=== PATIENT | male | born 1940 | race Caucasian/White ===

== ENCOUNTER 2017-08-08 09:20 | Observation (INO) | payer MEDICARE ==
[2017-08-05 11:23] LABS: EOSINOPHILS # (AUTO) 0.1 (0.0-0.4); EOSINOPHILS % 3.5 % (0.0-6.0); HEMOGLOBIN 12.6 g/dL (14.0-18.0); LYMPHOCYTES # (AUTO) 1.2 (1.0-3.2); LYMPHOCYTES % 29.8 % (18.0-39.1); MEAN CORPUSCULAR HGB CONC 32.3 g/dL (31-35); MONOCYTES # (AUTO) 0.2 (0.2-0.8); MONOCYTES % 5.7 % (4.4-11.3); NEUTROPHILS # (AUTO) 2.4 (2.1-6.9); NEUTROPHILS % 59.5 % (38.7-80.0); PLATELET COUNT 133 x10e3/uL (140-360); RED BLOOD COUNT 3.94 x10e6/uL (4.3-5.7); RED CELL DISTRIBUTION WIDTH 14.6 % (11.7-14.4)
[2017-08-05 11:46] LABS: ANION GAP 15.9 mmol/L (8-16); CREATININE, SERUM 1.35 mg/dL (0.72-1.25); POTASSIUM 3.9 mmol/L (3.5-5.1)
[2017-08-05 11:48] LABS: CALCIUM 9.9 mg/dL (8.4-10.2)
[~2017-08-08] VITALS: Ht 185.4 cm; Wt 147.9 kg
[~2017-08-08 09:20] MED LIST: ALLOPURINOL100 MG PO; ASPIR 8181 MG PO; BACITRACIN 50,000 UNIT VIAL ONE; CRESTOR10 MG; DIOVAN HCT 80-1 EACH PO; FUROSEMIDE40 MG PO; HYDROXYCHLOROQ200 MG; LIPITOR10 MG PO; MULTIVITAMIN PO; MUPIROCIN 2% OINT 22 GM TUBE ONE; PREDNISONE5 MG; PROBENECID-COL1 EACH PO; ROPIVACAINE 246.25 MG, EPINEPHRINE HCL 1:1000 0.5 MG, CLONIDINE HCL 0.08 MG, KETOROLAC ... INJ ONE; TRANEXAMIC ACID 1,000 MG/10 ML ML ONE; VITAMIN C PO; ZETIA10 MG PO
[2017-08-08] MEDS ORDERED: MUPIROCIN 2% OINT 22 GM TUBE ONE (09:35)
[2017-08-08] MEDS ORDERED: CELECOXIB 200 MG CAP ONE (09:55)
[2017-08-08] MEDS ORDERED: DEXAMETHASONE SOD PHOS 10 MG/1 ML VIAL ONE ×2 (09:55→17:56)
[2017-08-08] MEDS ORDERED: CEFAZOLIN SOD 2 GM/D5W 50ML 50 ML IV ONE (09:55)
[2017-08-08] MEDS ORDERED: GABAPENTIN 300 MG CAP ONE (09:55)
[2017-08-08] MEDS ORDERED: ACETAMINOPHEN 1000 MG/100 ML 100 ML IV ONE (11:43)
[2017-08-08] MEDS: SODIUM CHLORIDE 0.9% 1000ML 1,000 ML IV SCH ×2 (11:52→21:18)
[2017-08-08] MEDS: ACETAMINOPHEN 1000 MG/100 ML IV SCH ×3 (12:00→17:06)
[2017-08-08] MEDS ORDERED: KETOROLAC TROMETHAMINE 30 MG/ML VIAL IV PRN (12:00)
[2017-08-08] MEDS ORDERED: HYDROCODONE/APAP 5MG-325MG TAB PO PRN (12:00)
[2017-08-08] MEDS ORDERED: DOCUSATE SODIUM 100 MG CAP PO PRN (12:00)
[2017-08-08] MEDS ORDERED: HYDROCODONE/APAP 7.5MG-325MG 1 EA TAB PO PRN (12:00)
[2017-08-08] MEDS ORDERED: PROMETHAZINE HCL (IM) 25 MG/ML VIAL IM PRN (12:00)
[2017-08-08] MEDS ORDERED: ACETAMINOPHEN 650 MG SUPP PR PRN (12:00)
[2017-08-08] MEDS ORDERED: DIPHENHYDRAMINE HCL INJ 50 MG/ML VIAL IM/IV PRN (12:00)
[2017-08-08] MEDS ORDERED: ONDANSETRON HCL INJ 2 MG/ML VIAL IV PRN (12:00)
--- NOTE | 2017-08-08 13:17 | Diagnostic Imaging Report ---
PROCEDURE: X-RAY LEFT KNEE, ONE OR TWO VIEWS COMPARISON: 08/30/16 INDICATIONS:POST OPERATIVE LEFT KNEE SURGERY FINDINGS: See conclusion. CONCLUSION: Status post total left knee replacement with surrounding soft tissue swelling, air and master consistent with recent surgery. No acute fractures. Dictated by: Evaristo Corrales M.D. on 08/08/2017 at 13:20 Electronically approved by: Evaristo Corrales M.D. on 08/08/2017 at 13:20
[2017-08-08 13:35] VITALS: BP 110/54
--- NOTE | 2017-08-08 13:43 | Operative Report ---
DATE OF PROCEDURE: August 08, 2017 ELECTRIC MOTOR TESTER: Lm Swift PA-C The patient was brought to the operating room for induction of anesthesia. Throughout this case, my PA's assistance was necessary for retraction of soft tissue and positioning of the extremity. This allows for efficient and technically successful execution of the operation and is considered medically necessary. PREOPERATIVE DIAGNOSIS: 1. Osteoarthritis left knee. 2. Morbid obesity. POSTOPERATIVE DIAGNOSIS: 1. Osteoarthritis left knee. 2. Morbid obesity. PROCEDURE: Left total knee arthroplasty *added complexity secondary to BMI greater than 43. INDICATIONS: The patient is a 77-year-old gentleman who has end-stage arthritis of his left knee. He has failed conservative management and would like to proceed with a left total knee replacement. The risks and benefits have been discussed. The added challenges both for the surgery and his recovery due to his obesity have been explained. The added risk for perioperative complications has been explained. He has attempted weight loss without tremendous success. He wishes to proceed with the surgery. DESCRIPTION OF PROCEDURE: The patient was brought to the operating room and placed under general anesthetic. He received a regional block, prophylactic antibiotics and tranexamic acid in the holding area. His left lower extremity was prepped and draped in a sterile manner. Throughout the case, added time, personnel and difficulty were encountered due to the large size of his left leg. The left leg was ultimately prepped and draped in a sterile manner. A preoperative time out was performed. The extremity was carefully exsanguinated, and a proximal tourniquet was inflated to 350 mmHg. A somewhat more extensile exposure was necessary for the anterior approach of his left knee. A medial parapatellar arthrotomy was performed. Clear synovial fluid was removed from the joint. Soft-tissue releases were performed to ultimately bring the knee up into flexion with the patella everted. The cruciate ligaments were sacrificed. A Brown and Nephew posterior stabilized Tea II system was used throughout the case. Marginal osteophytes and meniscal remnants were removed from the knee. An extramedullary cutting guide was used to resect the proximal tibia. The tibial baseplate cut was referenced off of the least affected lateral compartment. The tibial baseplate was noted to be a size number 7. Some more dense sclerotic bone in the medial compartment was drilled with a small drill to add for later cement fixation. The central fin punch was impacted, and attention was directed towards the distal femur. An intramedullary cutting guide was used to resect the distal femur. The cut was made in 6 degrees of valgus and rotation referenced off of a combination of landmarks including [place]'s line, the epicondylar axis and the posterior condyles. Exposure was challenging due to the size and tightness of the knee. The femoral component was a size number 8. The anterior and posterior cuts were made. Trial reductions were then performed. A 9 mm posterior stabilized tibial insert provided optimal soft-tissue balancing in extension and 90 degrees of flexion. The patella was then resurfaced with a 35 mm x 7.5 mm patellar button. The thickness was checked before and after and was right around 26 mm. Patellar tracking was noted to be concentric. The trial implants were then all removed. The posterior compartment was inspected for any persistent osteophytes. A 100 mL premixed pericapsular OLGA injection was placed into the soft tissue. The knee was thoroughly irrigated with a Pulsavac. The components were cemented into place using a single mix of [place] cement preloaded with antibiotics. Care was taken to carefully remove all of the cement. The wound was further irrigated while the cement cured. The arthrotomy was then carefully closed with numerous interrupted number 1 Ethibond. The knee was put through flexion and extension to ensure a secure closure. The skin was closed with subcuticular Vicryl and master. A sterile bandage was applied. The patient was extubated and transported to the recovery room in stable condition. Blood loss was minimal. All needle and sponge counts were correct. Job#: [id number] EV
[2017-08-08] MEDS ORDERED: CEFAZOLIN SOD 1 GM/NS 50ML 50 ML IV SCH (14:00)
[2017-08-08] MEDS ORDERED: MIDAZOLAM HCL 2 MG/2 ML VIAL ONE (14:51)
[2017-08-08] MEDS ORDERED: FENTANYL CITRATE/PF 100MCG/2 ML INJ ONE (14:51)
[2017-08-08] MEDS ORDERED: CELECOXIB 100 MG CAP PO SCH (17:00)
[2017-08-08] MEDS: CEFAZOLIN SOD 1 GM VIAL IV SCH (17:02)
[2017-08-08] MEDS: ASPIRIN 325 MG TAB PO SCH (17:02)
[2017-08-08] MEDS ORDERED: ONDANSETRON HCL INJ 2 MG/ML VIAL ONE (17:49)
[2017-08-08] MEDS ORDERED: PROPOFOL IV EMULSION 10 MG/ML 20 ML VIAL ONE (17:49)
[2017-08-08] MEDS ORDERED: PHENYLEPHRINE HCL 1% 10 MG/ML VIAL ONE (17:49)
[2017-08-08] MEDS ORDERED: LIDOCAINE HCL 2% LOCAL INJ 5 ML SDV VIAL INJ ONE (17:49)
[2017-08-08] MEDS ORDERED: SEVOFLURANE INHAL SOLN 250 ML PEN BTL ONE (17:49)
[2017-08-08] MEDS ORDERED: DEXAMETHASONE SOD PHOS INJ 4 MG/ML VIAL ONE (17:49)
[2017-08-08] MEDS ORDERED: EPHEDRINE SULFATE INJ 50 MG/10 ML SYR ONE (17:49)
[2017-08-08] MEDS ORDERED: ROPIVACAINE 0.5% 5 MG/ML 30 ML SDV ONE (17:56)
[2017-08-08 20:00] VITALS: BP 127/63
[2017-08-08] MEDS ORDERED: ZOLPIDEM TARTRATE 5 MG TAB PO PRN (21:00)
[2017-08-08 23:22] VITALS: BP 127/63
[2017-08-09] VITALS: BP 107/56
[2017-08-09] MEDS: CEFAZOLIN SOD 1 GM VIAL IV SCH ×2 (01:14→09:52)
[2017-08-09 02:47] VITALS: BP 107/56
[2017-08-09 04:00] VITALS: BP 107/56
[2017-08-09] MEDS: ACETAMINOPHEN 1000 MG/100 ML IV SCH (05:30)
[2017-08-09 07:05] LABS: HEMATOCRIT 30.9 % (38.2-49.6); HEMOGLOBIN 10.1 g/dL (14.0-18.0)
[2017-08-09] MEDS: SODIUM CHLORIDE 0.9% 1000ML 1,000 ML IV SCH (07:52)
[2017-08-09] MEDS ORDERED: CELECOXIB 200 MG CAP PO SCH (08:00)
[2017-08-09 08:58] VITALS: BP 111/56
[2017-08-09] MEDS: ASPIRIN 325 MG TAB PO SCH (09:00)
[2017-08-09] MEDS ORDERED: ASPIRIN325 MG PO (11:11)
[2017-08-09] MEDS ORDERED: ACETAMINOPHEN 1000 MG/100 ML IV PRN (12:00)
[2017-08-09 13:45] VITALS: BP 122/60
[2017-08-09 14:08] VITALS: BP 122/60
== END 2017-08-09 14:30 | disposition home health service (06) ==
LOC: OR 09:20 → MED/SURG 12:32
PROVIDERS: ADMIT Specialist; ATTEND Specialist
DX: M17.12 Unilateral primary osteoarthritis, left knee (principal); E66.01 Morbid (severe) obesity due to excess calories; Z68.41 Body mass index [BMI] 40.0-44.9, adult; E78.00 Pure hypercholesterolemia, unspecified; D61.818 Other pancytopenia; M10.9 Gout, unspecified; I12.9 Hypertensive chronic kidney disease with stage 1 through stage 4 chronic kidney disease, or unspecified chronic kidney disease; N18.3 Chronic kidney disease, stage 3 (moderate)
CPT/HCPCS: 27447; 36415 ×2; 73560; 80048; 85014; 85018; 85025; 86850; 86900; 86920; 97110; 97116 ×2; 97161; 97530; G0378 ×2; G8978; G8979; J0171; J0690 ×2; J1100 ×2; J1885 ×2; J2001; J2250; J2370; J2405; J2795; J7030 ×2

== ENCOUNTER 2018-11-14 09:46 | Observation (INO) | payer MEDICARE ==
[~2018-11-14] VITALS: Ht 185.4 cm; Wt 145.6 kg
[~2018-11-14 09:46] MED LIST changes: +ASPIRIN325 MG PO; -BACITRACIN 50,000 UNIT VIAL ONE; -MUPIROCIN 2% OINT 22 GM TUBE ONE; -ROPIVACAINE 246.25 MG, EPINEPHRINE HCL 1:1000 0.5 MG, CLONIDINE HCL 0.08 MG, KETOROLAC ... INJ ONE; -TRANEXAMIC ACID 1,000 MG/10 ML ML ONE
--- OUTSIDE RECORDS SUMMARY | 2018-11-14 09:50 | XMS REPORT ---
Author Author Gaston Atwood [facility] eClinicalWorks Address Unknown Phone Unavailable Care Team Providers Care Beam Sealer Name Role Phone Gaston Atwood CP Unavailable Allergies, Adverse Reactions, Alerts Substance Reaction Event Type Celebrex Info Not Available Drug Allergy Problems Problem Type Condition Code Onset Dates Condition Status Assessment Long-term use of high-risk medication Z79.899 Active Assessment Gout M10.9 Active Assessment Low back pain M54.5 Active Problem Encounter for long-term (current) drug use Z79.899 Active Problem Low back pain M54.5 Active Problem Long-term use of high-risk medication Z79.899 Active Assessment Polyarthritis M13.0 Active Problem Gout M10.9 Active Problem Polyarthritis M13.0 Active Medications Medication Code System Code Instructions Start Date End Date Status Dosage Atorvastatin Calcium ND 05376958434 10 MG Orally Once a day Active 1 tablet Colchicine-Probenecid ND 19308361306 0.5-500 MG Orally Twice a day Active 1 tablet Calcium + D [facility] 82772339894 315-200 MG-UNIT Orally Once a day Active 1 tablet with meals Valsartan-Hydrochlorothiazide ND 90912514864 80-12.5 MG Orally Once a day Active 1 tablet Celecoxib ND 72187495983 200 MG Orally Once a day Active 1 capsule with food Diclofenac Sodium [facility] 85713598127 1 % Transdermal Active as directed Allopurinol ND 20701278114 300 MG Orally Once a day Active 1 tablet Furosemide ND 93714506158 40 MG Orally Once a day Active 1 tablet PredniSONE ND 73589280114 5 MG Orally Once a day Active 1 tablet Rosuvastatin Calcium ND 48760316354 10 MG Orally Once a day Active 1 tablet Hydroxychloroquine Sulfate ND 31438954265 200 MG Orally Once a day Active 1 tablet with food or milk Irbesartan ND 68863142351 300 MG Orally Once a day Active 1 tablet Gabapentin ND 86252655278 300 MG Orally Once a day Active 1 capsule Vital Signs Date/Time: May 30, 2018 BMI 46 Index Weight 341.2 lbs Height 72 in Temperature 97.7 F Cardiac Monitoring Heart Rate 72 /min Blood Pressure Diastolic 58 mm Hg Blood Pressure Systolic 110 mm Hg Results Name Result Date Reference Range Unit Abnormality Flag SEDIMENTATION RATE ----SEDIMENTATION RATE 2 20180530 0-15 MM/HOUR CBC W/AUTO DIFF ----PLATELET COUNT 146 20180530 130-400 K/UL ----MCV 94.8 67701934 80.0-100.0 fL ----BASOPHILS 0.5 67391080 0.0-2.0 % ----HEMATOCRIT 36.4 72628824 37.0-49.0 % L ----MCHC 33.2 52436449 32.0-35.5 G/DL ----EOSINOPHILS 4.5 20835277 0.0-7.0 % ----MCH 31.5 61697771 27.0-34.0 PG ----MONOCYTES 7.7 93477467 4.0-13.0 % ----WBC 3.8 60048573 4.0-11.0 K/UL L ----HEMOGLOBIN 12.1 54008865 13.0-17.0 G/DL L ----RBC 3.84 10221768 4.10-5.70 M/UL L ----LYMPHOCYTES 34.2 62668183 19.0-48.0 % ----RDW 14.3 67030190 11.0-15.0 % ----NEUTROPHILS 53.1 97557695 40.0-74.0 % COMPREHENSIVE METABOLIC PANEL ----CALC A/G RATIO 2.1 20180530 1.0-2.6 RATIO ----CALC GLOBULIN 2.1 20180530 1.9-3.7 G/DL ----ALKALINE PHOSPHATASE 67 20180530 40-125 U/L ----BILIRUBIN, TOTAL 0.4 20180530 <=1.2 MG/DL ----CHLORIDE 106 20180530 95-107 MEQ/L ----ALT 15 20180530 5-50 U/L ----POTASSIUM 3.9 20180530 3.5-5.4 MEQ/L ----AST 13 20180530 9-50 U/L ----SODIUM 147 20180530 133-146 MEQ/L H ----CALC BUN/CREAT 26 20180530 6-28 RATIO ---- eGFR NON- AMER. 63 20180530 >60 ML/MIN/1.73 ----CALCIUM 9.1 20180530 8.5-10.5 MG/DL ----CARBON DIOXIDE 26 20180530 19-31 MEQ/L ----ALBUMIN 4.4 20180530 3.5-5.2 G/DL ----PROTEIN, TOTAL 6.5 20180530 6.1-8.3 G/DL ----GLUCOSE 212 20180530 70-99 MG/DL H ----BUN 29 20180530 8-23 MG/DL H ----CREATININE 1.12 20180530 0.80-1.40 MG/DL ---- eGFR AMER. 73 20180530 >60 ML/MIN/1.73 URIC ACID ----URIC ACID 5.7 20180530 3.7-8.0 MG/DL C-REACTIVE PROTEIN ----C-REACTIVE PROTEIN <0.1 15982109 <0.5 MG/DL Summary Purpose eClinicalWorks Submission
--- OUTSIDE RECORDS SUMMARY | 2018-11-14 09:50 | XMS REPORT ---
Author Author Gaston Atwood Organization e[employer] Address Unknown Phone Unavailable Care Team Providers Care Senior Mechanical Design Engineer Name Role Phone Gaston Atwood CP Unavailable Allergies No Known Allergies Problems Problem Type Condition Code Onset Dates Condition Status Assessment Spinal stenosis M48.00 Active Assessment Encounter for long-term (current) drug use Z79.899 Active Assessment Long-term use of high-risk medication Z79.899 Active Problem Encounter for long-term (current) drug use Z79.899 Active Problem Low back pain M54.5 Active Problem Long-term use of high-risk medication Z79.899 Active Assessment Polyarthritis M13.0 Active Problem Gout M10.9 Active Problem Polyarthritis M13.0 Active Medications No Known Medications Results No Known Results Summary Purpose eClinicalWorks Submission
--- OUTSIDE RECORDS SUMMARY | 2018-11-14 09:50 | XMS REPORT | Continuity of Care Document ---
Author Author [employer] Address Unknown Phone Unavailable Care Team Providers Care Per Diem Nurse Name Role Phone [employer] Unavailable Unavailable Problems Problem Status Onset Date Classification Date Reported Comments Source Gout Active Diagnosis 08/28/2018 Yuval Villalpandoer Long-term use of high-risk medication Active Problem 08/28/2018 Yuval Villalpandoer Encounter for long-term (current) drug use Active Problem 08/28/2018 Yuval Atwood Low back pain Active Problem 08/28/2018 Yuval Atwood Polyarthritis Active Diagnosis 08/28/2018 Yuval Atwood Spinal stenosis Active Diagnosis 05/31/2018 Yuval Atwood Anemia, unspecified type Active Diagnosis 08/28/2018 Yuval Villalapndoer Leukopenia, unspecified type Active Diagnosis 08/28/2018 Yuval Atwood Medications Medication Details Route Status Patient Instructions Ordering Provider Order Date Source Aspirin 325 Mg Tablet Tw[facility] Aspirin (Aspir 81) 81 Mg Tablet.dr, 81 Mg Oral Daily Active 08/09/2017 [facility] Atorvastatin Calcium (Lipitor*) 10 Mg Tablet, 10 Mg Oral Daily Active 08/08/2017 [facility] Ezetimibe (Zetia) 10 Mg Tablet, 10 Mg Oral Daily Active 08/08/2017 [facility] Furosemide 1 tablet Orally Active 40 MG Orally Once a day Angelic Atwood Atorvastatin Calcium 1 tablet Orally Active 10 MG Orally Once a day Angelic Atwood Colchicine-Probenecid 1 tablet Orally Active 0.5-500 MG Orally Twice a day Agnelic Atwood Calcium + D 1 tablet with meals Orally Active 315-200 MG-UNIT Orally Once a day Angelic Atwood Hydroxychloroquine Sulfate TAKE ONE TABLET BY MOUTH TWICE A DAY WITH FOOD OR MILK NA Active 200 Angelic Atwood Allopurinol 1 tablet Orally Active 300 MG Orally Once a day Angelic Atwood Rosuvastatin Calcium 1 tablet Orally Active 10 MG Orally Once a day [place] Yuval Atwood Valsartan-Hydrochlorothiazide 1 tablet Orally Active 80-12.5 MG Orally Once a day [place] Yuval Atwood PredniSONE 1/2 tablet Orally Active 5 MG Orally Once a day [place] Yuval Atwood Irbesartan 1 tablet Orally Active 300 MG Orally Once a day [place] Yuval Atwood Diclofenac Sodium as directed Transdermal Active 1 % Transdermal [place] Yuval Atwood Gabapentin 1 capsule Orally Active 300 MG Orally Once a day [place] Yuval Atwood Calcium + D 1 tablet with meals Orally Active 500-1000-40 MG-[facility] Orally Once a day [place] Yuval Atwood Celecoxib 1 capsule with food Orally Active 200 MG Orally Once a day [place] Yuval Atwood Hydroxychloroquine Sulfate 1 tablet with food or milk Orally Active 200 MG Orally Once a day [place] Yuval Atwood PredniSONE 1 tablet Orally Active 5 MG Orally Once a day [place] Yuval Atwood Allopurinol 100 Mg Tablet Daily Active [facility] Colchicine/Probenecid (Probenecid-Colchicine Tabs) 1 Each Tablet Twice A Day Active [facility] Furosemide 40 Mg Tablet Daily Active [facility] Hydroxychloroquine Sulfate 200 Mg Tablet Twice A Day Active [facility] Multivitamin Daily Active [facility] Prednisone 5 Mg Tablet Active [facility] Rosuvastatin Calcium (Crestor) 10 Mg Tab Active THERAPEUTICALLY SUBSTITUTED WITH SIMVASTATIN 40MG [facility] Valsartan/Hydrochlorothiazide (Diovan Hct 80-12.5 Mg Tablet) 1 Each Tablet Daily Active [facility] Vitamin C Daily Active [facility] Allergies, Adverse Reactions, Alerts Substance Category Reaction Severity Reaction type Status Date Reported Comments Source Celebrex Adverse Reaction Info Not Available Adverse Reaction Active 07/06/2018 Yuval Angelic Immunizations No Data Provided for This Section Results Order Name Results Value Reference Range Date Interpretation Comments Source Automated blood hematocrit (volume fraction) Automated blood hematocrit (volume fraction) 30.9 38.2 - 49.6 08/09/2017 [facility] Blood hemoglobin measurement (moles/volume) Blood hemoglobin measurement (moles/volume) 10.1 14.0 - 18.0 08/09/2017 [facility] Automated blood basophil count (count/volume) Automated blood basophil count (count/volume) 0.0 0.0 - 0.1 08/05/2017 [facility] Automated blood basophil count as percentage of total leukocytes Automated blood basophil count as percentage of total leukocytes 1.0 0.0 - 1.0 08/05/2017 [facility] Automated blood eosinophil count Automated blood eosinophil count 0.1 0.0 - 0.4 08/05/2017 [facility] Automated blood eosinophil count as percentage of total leukocytes Automated blood eosinophil count as percentage of total leukocytes 3.5 0.0 - 6.0 08/05/2017 [facility] Automated blood lymphocyte count as percentage ot total leukocytes Automated blood lymphocyte count as percentage ot total leukocytes 29.8 18.0 - 39.1 08/05/2017 [facility] Automated blood monocyte count as percentage of total leukocytes Automated blood monocyte count as percentage of total leukocytes 5.7 4.4 - 11.3 08/05/2017 [facility] Automated blood neutrophil count Automated blood neutrophil count 2.4 2.1 - 6.9 08/05/2017 [facility] Automated blood platelet count (count/volume) Automated blood platelet count (count/volume) 133 140 - 360 08/05/2017 [facility] Automated blood segmented neutrophil count as percentage of total leukocytes Automated blood segmented neutrophil count as percentage of total leukocytes 59.5 38.7 - 80.0 08/05/2017 [facility] Automated erythrocyte mean corpuscular hemoglobin (mass per erythrocyte) Automated erythrocyte mean corpuscular hemoglobin (mass per erythrocyte) 32.0 28 - 32 08/05/2017 [facility] Automated erythrocyte mean corpuscular hemoglobin concentration measurement (mass/volume) Automated erythrocyte mean corpuscular hemoglobin concentration measurement (mass/volume) 32.3 31 - 35 08/05/2017 [facility] Automated erythrocyte mean corpuscular volume Automated erythrocyte mean corpuscular volume 99.0 81 - 99 08/05/2017 [facility] Blood erythrocytes automated count (number/volume) Blood erythrocytes automated count (number/volume) 3.94 4.3 - 5.7 08/05/2017 [facility] Blood leukocytes automated count (number/volume) Blood leukocytes automated count (number/volume) 4.03 4.8 - 10.8 08/05/2017 [facility] Blood lymphocytes count (number/volume) Blood lymphocytes count (number/volume) 1.2 1.0 - 3.2 08/05/2017 [facility] Blood monocytes automated count (number/volume) Blood monocytes automated count (number/volume) 0.2 0.2 - 0.8 08/05/2017 [facility] Estimated glomerular filtration rate (GFR) determination Estimated glomerular filtration rate (GFR) determination 51 60 08/05/2017 [facility] Glucose measurement Glucose measurement 163 74 - 118 08/05/2017 [facility] Serum or plasma anion gap Serum or plasma anion gap 15.9 8 - 16 08/05/2017 [facility] Serum or plasma calcium measurement (mass/volume) Serum or plasma calcium measurement (mass/volume) 9.9 8.4 - 10.2 08/05/2017 [facility] Serum or plasma carbon dioxide, total measurement (moles/volume) Serum or plasma carbon dioxide, total measurement (moles/volume) 29 22 - 29 08/05/2017 [facility] Serum or plasma chloride measurement (moles/volume) Serum or plasma chloride measurement (moles/volume) 106 98 - 107 08/05/2017 [facility] Serum or plasma creatinine measurement (mass/volume) Serum or plasma creatinine measurement (mass/volume) 1.35 0.72 - 1.25 08/05/2017 [facility] Serum or plasma potassium measurement (moles/volume) Serum or plasma potassium measurement (moles/volume) 3.9 3.5 - 5.1 08/05/2017 [facility] Serum or plasma sodium measurement (moles/volume) Serum or plasma sodium measurement (moles/volume) 147 136 - 145 08/05/2017 [facility] Serum or plasma urea nitrogen measurement (mass/volume) Serum or plasma urea nitrogen measurement (mass/volume) 36 7 - 26 08/05/2017 [facility] Serum or plasma urea nitrogen/creatinine mass ratio Serum or plasma urea nitrogen/creatinine mass ratio 27 6 - 25 08/05/2017 [facility] Red Cell Distribution Width 14.6 11.7 - 14.4 08/05/2017 [facility] IM GRANULOCYTES % 0.5 0.0 - 1.0 08/05/2017 [facility] Absolute Immature Granulocyte (auto 0.02 0 - 0.1 08/05/2017 [facility] Pathology Reports No Data Provided for This Section Diagnostic Reports No Data Provided for This Section Consultation Notes No Data Provided for This Section Discharge Summaries No Data Provided for This Section History and Physicals No Data Provided for This Section Vital Signs Vital Sign Value Date Comments Source Weight 338.9 07/06/2018 Yuval Villalpandoer Height 72 07/06/2018 Yuval Atwood Temperature Oral (F) 98.1 F 07/06/2018 Yuval Atwood Heart Rate 76 07/06/2018 Yuval Atwood Diastolic (mm Hg) 68 07/06/2018 Yuval Atwood Systolic (mm Hg) 112 07/06/2018 Yuval Villalpandoer Weight 341.2 05/30/2018 Yuval Atwood Height 72 05/30/2018 Yuval Atwood Temperature Oral (F) 97.7 F 05/30/2018 Yuval Atwood Heart Rate 72 05/30/2018 Yuval Atwood Diastolic (mm Hg) 58 05/30/2018 Yuval Atwood Systolic (mm Hg) 110 05/30/2018 Yuval Atwood Weight 334.8 11/29/2017 Yuval Atwood Height 72 11/29/2017 Yuval Atwood Temperature Oral (F) 97.7 F 11/29/2017 Yuval Atwood Heart Rate 68 11/29/2017 Yuval Atwood Diastolic (mm Hg) 70 11/29/2017 Yuval Atwood Systolic (mm Hg) 120 11/29/2017 Yuval Atwood Weight 328 05/27/2017 Yuval Atwood Height 72 05/27/2017 Yuval Atwood Temperature Oral (F) 96.9 F 05/27/2017 Yuval Atwood Heart Rate 64 05/27/2017 Yuval Atwood Diastolic (mm Hg) 74 05/27/2017 Yuval Atwood Systolic (mm Hg) 120 05/27/2017 Yuval Atwood Encounters Location Location Details Encounter Type Encounter Number Reason For Visit Attending Provider ADM Date DC Date Status Source Discharged Inpatient (obs) [id number] FIDENCIO GALLARDO MD 08/08/2017 08/09/2017 [facility] Procedures Procedure Code Date Perfomer Comments Source Total replacement of left knee joint 721931173 08/08/2017 [facility] Assessment and Plan No Data Provided for This Section Plan of Care Plan of Care Date Source Discharge Date 08/09/17 2:30pm Disposition HOME HEALTH SERVICE Instructions/Education Provided Post Operative Pain Prescriptions See Medication Section Referrals FIDENCIO GALLARDO MD (Orthopedic) Order Date: 08/18/2017 Entered Date: 08/09/2017 11:12am Address: [address] [place] [address] [place] [id number] Additional Instructions/Education Diet tolerated <Ok to shower and wash wound gently starting, tomorrow, Change bandage daily, ASA 325mg BID x 3 weeks for thromboprophylaxis> Follow up with your PCP Call for Appt. with Dr. Gallardo or Tuesday for follow up. If any Increase of temperature or Pain return to ER 08/09/2017 [facility] Social History Social History Date Source Social History Problem Response Recorded Date/Time Onset Date Status Hx Psychiatric Problems No 08/08/2017 5:45pm Not Applicable Not Applicable Hx Alcohol Use No 08/08/2017 5:45pm Not Applicable Not Applicable Hx Substance Use Treatment No 08/08/2017 5:45pm Not Applicable Not Applicable Hx Physical Abuse No 08/08/2017 5:45pm Not Applicable Not Applicable Smoking Status Start Date Stop Date Former smoker 08/09/2017 [facility] Family History No Data Provided for This Section Advance Directives Order Name Results Value Date Source Advance Directives Advance Directives Directive Response Recorded Date/Time Does the patient have an advance directive? No 08/08/17 5:45pm If yes, is advance directive on file with [facility]? No 08/08/17 5:45pm If not on file with [facility] will patient provide a copy? No 08/08/17 5:45pm Do you have a Directive to Physician? Yes 08/05/17 10:24am Do you have a Medical Power of Heating Worker? Yes 08/05/17 10:24am Do you have an out of hospital Do Not Resuscitate Order? Yes 08/05/17 10:25am Do you have any special needs we should be aware of? No 08/05/17 10:25am Do you have a support person here with you today? Yes 08/05/17 10:25am Did patient receive Notice of Privacy Practices? Yes 08/05/17 10:25am Did patient receive patient rights and responsibilities? Yes 08/05/17 10:25am 08/09/2017 [facility] Functional Status No Data Provided for This Section
--- OUTSIDE RECORDS SUMMARY | 2018-11-14 09:50 | XMS REPORT ---
Author Author Gaston Atwood Organization e[employer] Address Unknown Phone Unavailable Care Team Providers Care Superintendent Measurement Name Role Phone Gaston Atwood CP Unavailable Allergies, Adverse Reactions, Alerts Substance Reaction Event Type Celebrex Info Not Available Drug Allergy Problems Problem Type Condition Code Onset Dates Condition Status Assessment Gout M10.9 Active Assessment Long-term use of high-risk medication Z79.899 Active Problem Encounter for long-term (current) drug use Z79.899 Active Problem Low back pain M54.5 Active Problem Long-term use of high-risk medication Z79.899 Active Assessment Polyarthritis M13.0 Active Assessment Low back pain M54.5 Active Problem Gout M10.9 Active Problem Polyarthritis M13.0 Active Medications Medication Code System Code Instructions Start Date End Date Status Dosage Furosemide ND 30773079498 40 MG Orally Once a day Active 1 tablet Atorvastatin Calcium ND 21264990451 10 MG Orally Once a day Active 1 tablet Colchicine-Probenecid ND 20959380732 0.5-500 MG Orally Twice a day Active 1 tablet Calcium + D [facility] 26306165016 315-200 MG-UNIT Orally Once a day Active 1 tablet with meals Hydroxychloroquine Sulfate [facility] 78147919667 200 Active TAKE ONE TABLET BY MOUTH TWICE A DAY WITH FOOD OR MILK Allopurinol ND 95313255462 300 MG Orally Once a day Active 1 tablet Rosuvastatin Calcium ND 31422358400 10 MG Orally Once a day Active 1 tablet Valsartan-Hydrochlorothiazide ND 61029445882 80-12.5 MG Orally Once a day Active 1 tablet PredniSONE NDC 0 5 MG Orally Once a day Active 1 tablet Vital Signs Date/Time: May 27, 2017 BMI 44.48 Index Weight 328 lbs Height 72 in Temperature 96.9 F Cardiac Monitoring Heart Rate 64 /min Blood Pressure Diastolic 74 mm Hg Blood Pressure Systolic 120 mm Hg Results No Known Results Summary Purpose eClinicalWorks Submission
--- OUTSIDE RECORDS SUMMARY | 2018-11-14 09:50 | XMS REPORT ---
Author Author Gaston Atwood Organization [employer] Address Unknown Phone Unavailable Care Team Providers Care Sales Support Administrator Name Role Phone Gaston Atwood CP Unavailable Allergies No Known Allergies Problems Problem Type Condition Code Onset Dates Condition Status Problem Encounter for long-term (current) drug use Z79.899 Active Problem Low back pain M54.5 Active Problem Long-term use of high-risk medication Z79.899 Active Problem Gout M10.9 Active Problem Polyarthritis M13.0 Active Medications No Known Medications Results No Known Results Summary Purpose eClinical[employer] Submission
--- OUTSIDE RECORDS SUMMARY | 2018-11-14 09:50 | XMS REPORT ---
Author Author Gaston Atwood [facility] e[employer] Address Unknown Phone Unavailable Care Team Providers Care Rail Layer Name Role Phone Gaston Atwood CP Unavailable Allergies, Adverse Reactions, Alerts Substance Reaction Event Type Celebrex Info Not Available Drug Allergy Problems Problem Type Condition Code Onset Dates Condition Status Assessment Gout M10.9 Active Assessment Polyarthritis M13.0 Active Assessment Anemia, unspecified type D64.9 Active Assessment Leukopenia, unspecified type D72.819 Active Problem Leukopenia, unspecified type D72.819 Active Problem Encounter for long-term (current) drug use Z79.899 Active Problem Anemia, unspecified type D64.9 Active Problem Gout M10.9 Active Problem Polyarthritis M13.0 Active Problem Long-term use of high-risk medication Z79.899 Active Problem Low back pain M54.5 Active Medications Medication Code System Code Instructions Start Date End Date Status Dosage Irbesartan ND 05522630341 300 MG Orally Once a day Active 1 tablet Diclofenac Sodium [facility] 41984276678 1 % Transdermal Active as directed PredniSONE NDC 0 5 MG Orally Once a day Active 1/2 tablet Gabapentin ND 38156133063 300 MG Orally Once a day Active 1 capsule Allopurinol ND 37079179524 300 MG Orally Once a day Active 1 tablet Colchicine-Probenecid ND 28105136750 0.5-500 MG Orally Twice a day Active 1 tablet Calcium + D [facility] 72675874058 500-1000-40 MG-UNT-MCG Orally Once a day Active 1 tablet with meals Furosemide ND 80616894938 40 MG Orally Once a day Active 1 tablet Celecoxib ND 88908242453 200 MG Orally Once a day Active 1 capsule with food Hydroxychloroquine Sulfate ND 94667609931 200 MG Orally Once a day Active 1 tablet with food or milk Rosuvastatin Calcium ND 61906110329 10 MG Orally Once a day Active 1 tablet Vital Signs Date/Time: July 06, 2018 BMI 46 Index Weight 338.9 lbs Height 72 in Temperature 98.1 F Cardiac Monitoring Heart Rate 76 /min Blood Pressure Diastolic 68 mm Hg Blood Pressure Systolic 112 mm Hg Results No Known Results Summary Purpose eClinicalWorks Submission
--- OUTSIDE RECORDS SUMMARY | 2018-11-14 09:50 | XMS REPORT ---
Author Author [facility] Address Unknown Phone Unavailable Care Team Providers Care Piano Case And Bench Assembler Name Role Phone FIDENCIO GALLARDO Unavailable Unavailable Payers Payer Name Policy Type Policy Number Effective Date Expiration Date Problems This patient has no known problems. Allergies, Adverse Reactions, Alerts Allergy Name Allergy Type Status Severity Reaction(s) Onset Date Inactive Date Treating Clinician Comments No Known Drug Intolerances DA Active U 2009-07-31 00:00:00 Medications This patient has no known medications. Results Test Description Test Time Test Comments Text Results Atomic Results Result Comments - MRI L-SPINE W/O CONT 2018-07-11 11:42:00 FAX: Ra Almonte DO [phone] [place]: St: REG FAX: Gaston Puri MD [phone] Name: NIKIA JAIN [facility] : 1940 Age/S: 78/M Cheryl Bargeryudith Ma Unit #: [id number] Loc: [place] [address] Phys: Gaston Atwood MD Acct: [id number] Dis Date: Status: REG CLI PHONE #: [phone] Exam Date: 07/11/2018 1045 FAX #: [phone] Reason: M48.00 EXAMS: CPT CODE: [id number] MRI L-SPINE W/O CONT 94775 HISTORY: M48.00 COMPARISON: X-ray from November 23, 2017. MRI lumbar spine without contrast: Conus terminating at T12-L1 level without compression, syrinx or myelomalacia. Vertebral body heights are maintained. Bone marrow signal is within normal limits. Disc space narrowing at L2-L3, L3-L4 and L4-L5 levels. Disc desiccation from L2-L3 through L5-S1 level. Anterior osteophytes. At T12-L1 level no disc herniation, canal or foraminal stenosis. At L1-L2 level no disc herniation, canal or foraminal stenosis. At L2-L3 level posterior central and lateral disc extrusion resulting in moderate canal and moderate foraminal stenosis. Contact suspected with the descending L3 nerve roots. Correlate with radicular symptoms. At L3-L4 level posterior central and lateral disc protrusion resulting in mild canal and mild foraminal stenosis in combination with facet hypertrophy. Correlate with radicular symptoms. At L4-L5 level lateral disc extrusion with moderate foraminal stenosis in combination with facet hypertrophy. Mild canal stenosis. Correlate with radicular symptoms. At L5-S1 level central and paracentral disc extrusion with moderate canal and foraminal stenosis. Extraforaminal contact of bilateral exiting L5 nerve roots. Correlate with radicular symptoms. IMPRESSION: At L5-S1 level central and paracentral disc extrusion with facet hypertrophy resulting in moderate canal and foraminal stenosis with extraforaminal contact with exiting L5 nerve roots. Correlate with radicular symptoms. At L2-L3 level posterior central and lateral disc extrusion and facet hypertrophy with moderate canal and foraminal stenosis. Contact with the descending L3 nerve roots. Correlate with radicular symptoms PAGE 1 Signed Report (CONTINUED) FAX: Ra Almonte DO [phone] [place]: St: [facility] FAX: Gaston Puri MD [phone] Name: NIKIA JAIN [facility] : 1940 Age/S: 78/M Cheryl [facility] Unit #: [id number] Loc: [place] [address] Phys: Gaston Atwood MD Acct: [id number] Dis Date: Status: REG CLI PHONE #: [phone] Exam Date: 07/11/2018 1045 FAX #: [phone] Reason: M48.00 EXAMS: CPT CODE: [id number] MRI L-SPINE W/O CONT 25767 <Continued> Multilevel spondylosis as described. at 1142 Reported and signed by: Nathan Hector M.D. CC: Ra Adams; Gaston Atwood M.D. Technologist: RT MAURA - MRI Trnscrd Date/Time/By: 07/11/2018 (8542) : By: [email or web address] Orig Print D/T: S: 07/11/2018 (2203) PAGE 2 Signed Report KNEE LEFT 1-2 VIEWS [place] [address] Patient Name: NIKIA JAIN MR #: [id number] : 1940 Age/Sex: 77/M Req #: [id number] [facility] Physician: FIDENCIO GALLARDO MD Ordered by: FIDENCIO GALLARDO MD Report #: [id number] Location: MED/SURG Room/Bed: 106 Procedure: [id number] DX/KNEE LEFT 1-2 VIEWS Exam Date: 08/08/17 Exam Time: 1225 REPORT STATUS: Signed PROCEDURE: X-RAY LEFT KNEE, ONE OR TWO VIEWS COMPARISON: 08/30/16 INDICATIONS: POST OPERATIVE LEFT KNEE SURGERY FINDINGS: See conclusion. CONCLUSION: Status post total left knee replacement with surrounding soft tissue swelling, air and master consistent with recent surgery. No acute fractures. Dictated by: Evaristo Salamanca M.D. on 08/08/2017 at 13:20 Electronically approved by: Evaristo Salamanca M.D. on 08/08/2017 at 13:20 Dictated By: EVARISTO SALAMNACA MD 1320 Transcribed By: CORTEZ on 08/08/17 1320 COPY TO: FIDENCIO GALLARDO MD
--- OUTSIDE RECORDS SUMMARY | 2018-11-14 09:50 | XMS REPORT ---
Author Author Gaston Atwood Organization [employer] Address Unknown Phone Unavailable Care Team Providers Care Drafter Marine Name Role Phone Gaston Atwood CP Unavailable [...]
--- OUTSIDE RECORDS SUMMARY | 2018-11-14 09:50 | XMS REPORT ---
Author Author Gaston Atwood Organization [employer] Address Unknown Phone Unavailable Care Team Providers Care [place] Miner Name Role Phone Gaston Atwood CP Unavailable [...]
--- OUTSIDE RECORDS SUMMARY | 2018-11-14 09:50 | XMS REPORT ---
Author Author Gaston Atwood Organization [employer] Address Unknown Phone Unavailable Care Team Providers Care Equal Employment Opportunity Officer Name Role Phone Gaston Atwood CP Unavailable [...]
--- OUTSIDE RECORDS SUMMARY | 2018-11-14 09:50 | XMS REPORT ---
Author Author Gaston Atwood [facility] eClinical[employer] Address Unknown Phone Unavailable Care Team Providers Care Automotive Collision Repair Instructor Name Role Phone Gaston Atwood CP Unavailable Allergies, Adverse Reactions, Alerts Substance Reaction Event Type Celebrex Info Not Available Drug Allergy Problems Problem Type Condition Code Onset Dates Condition Status Assessment Low back pain M54.5 Active Assessment Encounter for long-term (current) drug use Z79.899 Active Problem Encounter for long-term (current) drug use Z79.899 Active Problem Low back pain M54.5 Active Problem Long-term use of high-risk medication Z79.899 Active Assessment Polyarthritis M13.0 Active Assessment Gout M10.9 Active Problem Gout M10.9 Active Problem Polyarthritis M13.0 Active Medications Medication Code System Code Instructions Start Date End Date Status Dosage Celecoxib ND 19723868564 200 MG Orally Once a day Active 1 capsule with food Colchicine-Probenecid ND 98085271559 0.5-500 MG Orally Twice a day Active 1 tablet Calcium + D [facility] 28735867050 315-200 MG-UNIT Orally Once a day Active 1 tablet with meals Furosemide ND 16057461524 40 MG Orally Once a day Active 1 tablet Atorvastatin Calcium ND 27039679593 10 MG Orally Once a day Active 1 tablet Allopurinol ND 58505376709 300 MG Orally Once a day Active 1 tablet Hydroxychloroquine Sulfate [facility] 63958440356 200 Active TAKE ONE TABLET BY MOUTH TWICE A DAY WITH FOOD OR MILK PredniSONE ND 89015794563 5 MG Orally Once a day Active 1 tablet Rosuvastatin Calcium ND 63553705961 10 MG Orally Once a day Active 1 tablet Valsartan-Hydrochlorothiazide ND 16992502229 80-12.5 MG Orally Once a day Active 1 tablet Vital Signs Date/Time: Nov 29, 2017 BMI 45.40 Index Weight 334.8 lbs Height 72 in Temperature 97.7 F Cardiac Monitoring Heart Rate 68 /min Blood Pressure Diastolic 70 mm Hg Blood Pressure Systolic 120 mm Hg Results Name Result Date Reference Range Unit Abnormality Flag 1055 SEDIMENTATION RATE ----SEDIMENTATION RATE 7 58824957 0-15 MM/HOUR 1000 CBC W/AUTO DIFF ----PLATELET COUNT 147 34387141 130-400 K/UL ----MCV 93.0 26588998 80.0-100.0 fL ----HEMATOCRIT 35.7 91967330 37.0-49.0 % L ----BASOPHILS 0.5 60827359 0.0-2.0 % ----MCHC 33.1 33415092 32.0-35.5 G/DL ----EOSINOPHILS 2.9 13254250 0.0-7.0 % ----MCH 30.7 29115518 27.0-34.0 PG ----MONOCYTES 7.9 02163683 4.0-13.0 % ----WBC 4.2 40376904 4.0-11.0 K/UL ----HEMOGLOBIN 11.8 83529452 13.0-17.0 G/DL L ----RBC 3.84 40614523 4.10-5.70 M/UL L ----LYMPHOCYTES 24.3 78088662 19.0-48.0 % ----RDW 14.3 63659643 11.0-15.0 % ----NEUTROPHILS 64.4 20876372 40.0-74.0 % 9179 COMPREHENSIVE METABOLIC PANEL ----CALC A/G RATIO 2.0 38536080 1.0-2.6 RATIO ----CALC GLOBULIN 2.2 87705100 1.9-3.7 G/DL ----ALKALINE PHOSPHATASE 61 38835402 40-125 U/L ----BILIRUBIN, TOTAL 0.5 72300973 <=1.2 MG/DL ----CHLORIDE 101 03586957 95-107 MEQ/L ----ALT 17 53057092 5-50 U/L ----POTASSIUM 4.1 69176042 3.5-5.4 MEQ/L ----AST 14 51196565 9-50 U/L ----SODIUM 144 21996897 133-146 MEQ/L ----CALC BUN/CREAT 26 55476503 6-28 RATIO ---- eGFR NON- AMER. 61 20171129 >60 ML/MIN/1.73 ----CALCIUM 9.6 64040064 8.5-10.5 MG/DL ----CARBON DIOXIDE 29 20171129 19-31 MEQ/L ----ALBUMIN 4.4 20171129 3.5-5.2 G/DL ----PROTEIN, TOTAL 6.6 98135047 6.1-8.3 G/DL ----GLUCOSE 153 73907268 70-99 MG/DL H ----BUN 30 20171129 8-23 MG/DL H ----CREATININE 1.15 75485859 0.80-1.40 MG/DL ---- eGFR AMER. 71 20171129 >60 ML/MIN/1.73 5083 HIGH SENSITIVITY CRP ----HIGH SENSITIVITY CRP <0.3 20171129 SEE BELOW MG/L Summary Purpose eClinicalWorks Submission
[2018-11-14 10:16] LABS: BASOPHILS % 0.4 % (0.0-1.0); EOSINOPHILS # (AUTO) 0.2 (0.0-0.4); EOSINOPHILS % 3.6 % (0.0-6.0); HEMATOCRIT 39.7 % (38.2-49.6); HEMOGLOBIN 12.6 g/dL (14.0-18.0); LYMPHOCYTES # (AUTO) 1.1 (1.0-3.2); LYMPHOCYTES % 19.8 % (18.0-39.1); MEAN CORPUSCULAR HEMOGLOBIN 30.9 pg (28-32); MEAN CORPUSCULAR HGB CONC 31.7 g/dL (31-35); MEAN CORPUSCULAR VOLUME 97.3 fL (81-99); MONOCYTES # (AUTO) 0.4 (0.2-0.8); MONOCYTES % 7.4 % (4.4-11.3); NEUTROPHILS # (AUTO) 3.8 (2.1-6.9); NEUTROPHILS % 68.3 % (38.7-80.0); PLATELET COUNT 136 x10e3/uL (140-360); RED BLOOD COUNT 4.08 x10e6/uL (4.3-5.7); RED CELL DISTRIBUTION WIDTH 15.2 % (11.7-14.4)
[2018-11-14 10:25] LABS: INR 0.91; PROTHROMBIN TIME 12.7 seconds (11.9-14.5)
[2018-11-14 10:26] LABS: BILIRUBIN,URINE NEGATIVE (NEGATIVE); CLARITY,URINE CLEAR (CLEAR); COLOR,URINE YELLOW (YELLOW); KETONES,URINE NEGATIVE (NEGATIVE); LEUKOCYTE ESTERASE ,URINE NEGATIVE (NEGATIVE); NITRITE,URINE NEGATIVE (NEGATIVE); PARTIAL THROMBOPLASTIN TIME 24.8 seconds (23.8-35.5); PROTEIN,URINE DIPSTICK NEGATIVE (NEGATIVE); URINE UROBILINOGEN 0.2 mg/dL (0.2 - 1)
[2018-11-14 10:33] LABS: ALBUMIN 4.1 g/dL (3.5-5.0); ALBUMIN/GLOBULIN RATIO 1.6 (0.8-2.0); ALKALINE PHOSPHATASE 67 IU/L (40-150); ANION GAP 13.2 mmol/L (8-16); BLOOD UREA NITROGEN 29 mg/dL (7-26); BUN/CREATININE RATIO 23 (6-25); CALCIUM 9.6 mg/dL (8.4-10.2); CARBON DIOXIDE 30 mmol/L (22-29); CHLORIDE 103 mmol/L (98-107); CREATINE KINASE 89 IU/L (30-200); CREATININE, SERUM 1.26 mg/dL (0.72-1.25); EST GLOMERULAR FILTRATION RATE 55 ML/MIN (60-); GLUCOSE 194 mg/dL (74-118); MAGNESIUM 2.2 MG/DL (1.3-2.1); POTASSIUM 4.2 mmol/L (3.5-5.1); SODIUM 142 mmol/L (136-145)
[2018-11-14 10:39] LABS: ALANINE AMINOTRANSFERASE < 6 IU/L (0-55)
[2018-11-14 10:51] LABS: BACTERIA,URINE MODERATE /HPF; EPITHELIAL CELLS,URINE MODERATE /LPF; RBC,URINE 0-5 /HPF (0-5)
[2018-11-14 10:52] LABS: MUCUS,URINE MODERATE (RARE)
[2018-11-14 10:57] LABS: THYROID STIMULATING HORMONE 1.699 uIU/mL (0.350-4.940)
--- NOTE | 2018-11-14 11:08 | Diagnostic Imaging Report ---
EXAM: CHEST SINGLE (PORTABLE) DATE: 11/14/2018 9:57 AM INDICATION: Chest pain, dizziness COMPARISON: None FINDINGS: The trachea is midline. There are mild bibasilar opacity suggestive of atelectasis. The lungs are otherwise symmetrically expanded without evidence for focal consolidation, pneumothorax, or significant pleural effusion. The cardiac silhouette is magnified by technique. Mediastinal contours are unremarkable. No acute osseous abnormalities identified. IMPRESSION: No acute cardiopulmonary process identified. Signed by: Dr. Mitul Contreras MD on 11/14/2018 11:04 AM
--- NOTE | 2018-11-14 11:48 | NUR ---
PT RETURNED FROM RADIOLOGY AT THIS TIME, TO ROOM 3, SEE ASSESSMENT.
--- NOTE | 2018-11-14 12:19 | Diagnostic Imaging Report ---
EXAMINATION: Head CT HISTORY: Dizziness, hypertension, blurry vision, difficulty hearing. COMPARISON: None available TECHNIQUE: Multidetector axial images were obtained without contrast from the foramen magnum to the vertex . The images were reconstructed using brain and bone algorithms. Thin section brain images were reformatted into coronal and sagittal planes. Image quality: Motion/streaking artifact limits the evaluation of the skull base and posterior cranial fossa. Dose modulation, iterative reconstruction, and/or weight based adjustment of the mA/kV was utilized to reduce the radiation dose to as low as reasonably achievable. FINDINGS: Parenchyma: 1. Few scattered and periventricular white matter hypodensities, most likely nonspecific chronic microvascular ischemic changes. 2. No mass or hemorrhage. No CT evidence of acute territorial vascular insult. Extra-axial spaces:No abnormal density. No extra-axial fluid collections Brain volume: Mild generalized volume loss, within normal limits for patient's age. Ventricles: No hydrocephalus or displacement. Arteries: Prominent tortuosity, dilatation and hyperdensity of the posterior circulation particularly at the vertebrobasilar junction, which may be related to atherosclerosis/hypertension, with vertebral basilar dolichoectasia and possible aneurysm, if clinical concern consider a CT angiogram of the head and neck with contrast for further evaluation. Dural sinuses: No abnormal density. Extra-axial spaces: No abnormal density. Foramen magnum: No mass, Chiari malformation, or basilar invagination. Sella: No obvious mass. Paranasal/mastoid sinuses: Imaged portions unremarkable. Skull/Scalp: No lytic or blastic lesions. No fractures. Incidentally noted is a small left frontal subgaleal benign lipoma. IMPRESSION: 1. No acute intracranial abnormalities. 2. Mild white matter chronic microvascular ischemic changes. 3. Vertebrobasilar dolichoectasia as detailed above. Signed by: Dr. Arleen Guerra M.D. on 11/14/2018 12:16 PM
[2018-11-14] MEDS ORDERED: SODIUM CHLORIDE 0.9% 1000ML 1,000 ML IV STA (12:44)
[2018-11-14] MEDS ORDERED: MECLIZINE HCL 12.5 MG TAB PO ONE (13:15)
[2018-11-14] MEDS ORDERED: ASPIRIN 325 MG TAB EC PO ONE (13:30)
[2018-11-14] MEDS ORDERED: MECLIZINE HCL 12.5 MG TAB PO PRN (13:30)
[2018-11-14] MEDS ORDERED: ONDANSETRON HCL INJ 2MG/ML 2ML 2 MG/ML VIAL IV PRN (13:30)
[2018-11-14] MEDS: CEFTRIAXONE SOD 1 GM/NS 50 ML 50 ML IV SCH (14:25)
--- OUTSIDE RECORDS SUMMARY | 2018-11-14 15:24 | XMS REPORT | Continuity of Care Document ---
Author Author [facility] Address Unknown Phone Unavailable Care Team Providers Care Plant Health Manager Name Role Phone [employer] Unavailable Unavailable Problems Problem Status [...] Anemia, unspecified type Active Diagnosis 08/28/2018 Yuval Villalpandoer Leukopenia, unspecified type Active Diagnosis 08/28/2018 Yuval [facility] Medications Medication Details Route Status Patient Instructions Ordering Provider Order Date Source Aspirin 325 Mg [facility]t [facility] Aspirin (Aspir 81) 81 Mg Tablet.dr, 81 Mg Oral Daily Active 08/09/2017 [facility] Atorvastatin Calcium (Lipitor*) 10 Mg Tablet, 10 Mg Oral Daily Active 08/08/2017 [facility] Ezetimibe (Zetia) 10 Mg Tablet, 10 Mg Oral Daily Active 08/08/2017 [facility] Furosemide 1 tablet Orally Active 40 MG Orally Once a day [facility] Atorvastatin Calcium 1 tablet Orally Active 10 MG Orally Once a day [facility] Colchicine-Probenecid 1 tablet Orally Active 0.5-500 MG Orally Twice a day [facility] Calcium + D 1 tablet with meals Orally Active 315-200 MG-UNIT Orally Once a day [facility] Hydroxychloroquine Sulfate TAKE ONE TABLET BY MOUTH TWICE A DAY WITH FOOD OR MILK NA Active 200 [facility] Allopurinol 1 tablet Orally Active 300 MG Orally Once a day [facility] Rosuvastatin Calcium 1 tablet Orally Active 10 MG Orally Once a day [place] Yuval [facility]wood Valsartan-Hydrochlorothiazide 1 tablet Orally Active 80-12.5 MG Orally Once a day [place] [facility] PredniSONE 1/2 tablet Orally Active 5 MG Orally Once a day [place] [facility] Irbesartan 1 tablet Orally Active 300 MG Orally Once a day [place] [facility] Diclofenac Sodium as directed Transdermal Active 1 % Transdermal [place] [facility] Gabapentin 1 capsule Orally Active 300 MG Orally Once a day [place] [facility] Calcium + D 1 tablet with meals Orally Active 500-1000-40 MG-UNT-MCG Orally Once a day [place] Yu[facility] Celecoxib 1 capsule with food Orally Active 200 MG Orally Once a day [place] [facility] Hydroxychloroquine Sulfate 1 tablet with food or milk Orally Active 200 MG Orally Once a day [place] [facility] PredniSONE 1 tablet Orally Active 5 MG Orally Once a day [place] [facility] Allopurinol 100 Mg Tablet Daily Active [facility] Colchicine/Probenecid (Probenecid-Colchicine Tabs) 1 Each Tablet Twice A Day Active [facility] Furosemide 40 Mg Tablet Daily Active [facility] Hydroxychloroquine Sulfate 200 Mg Tablet Twice A Day Active [facility] Multivitamin Daily Active [facility] Prednisone 5 Mg Tablet Active [facility] Rosuvastatin Calcium (Crestor) 10 Mg Tab Active THERAPEUTICALLY SUBSTITUTED WITH SIMVASTATIN 40MG [facility] Valsartan/Hydrochlorothiazide (Diovan Hct 80-12.5 Mg Tablet) 1 Each Tablet Daily Active [facility] Vitamin C Daily Active [facility] Allergies, Adverse Reactions, Alerts Substance Category Reaction Severity Reaction type Status Date Reported Comments Source Celebrex Adverse Reaction Info Not Available Adverse Reaction Active 07/06/2018 Yuval [facility] Immunizations No Data Provided for This Section Results Order Name Results Value Reference Range Date Interpretation Comments Source Automated blood hematocrit (volume fraction) Automated blood hematocrit (volume fraction) 30.9 38.2 - 49.6 08/09/2017 [facility] Blood hemoglobin measurement (moles/volume) Blood hemoglobin measurement (moles/volume) 10.1 14.0 - 18.0 08/09/2017 [facility] Automated blood basophil count (count/volume) Automated blood basophil count (count/volume) 0.0 0.0 - 0.1 08/05/2017 [facility] Automated blood basophil count as percentage of total leukocytes Automated blood basophil count as percentage of total leukocytes 1.0 0.0 - 1.0 08/05/2017 [facility] Automated blood eosinophil count Automated blood eosinophil count 0.1 0.0 - 0.4 08/05/2017 [facility] Automated blood eosinophil count as percentage of total leukocytes Automated blood eosinophil count as percentage of total leukocytes 3.5 0.0 - 6.0 08/05/2017 [facility] Automated blood lymphocyte count as percentage ot total leukocytes Automated blood lymphocyte count as percentage ot total leukocytes 29.8 18.0 - 39.1 08/05/2017 [facility] Automated blood monocyte count as percentage of total leukocytes Automated blood monocyte count as percentage of total leukocytes 5.7 4.4 - 11.3 08/05/2017 [facility] Automated blood neutrophil count Automated blood neutrophil count 2.4 2.1 - 6.9 08/05/2017 [facility] Automated blood platelet count (count/volume) Automated blood platelet count (count/volume) 133 140 - 360 08/05/2017 [facility] Automated blood segmented neutrophil count as percentage of total leukocytes Automated blood segmented neutrophil count as percentage of total leukocytes 59.5 38.7 - 80.0 08/05/2017 [facility] Automated erythrocyte mean corpuscular hemoglobin (mass per erythrocyte) Automated erythrocyte mean corpuscular hemoglobin (mass per erythrocyte) 32.0 28 - 32 08/05/2017 [facility] Automated erythrocyte mean corpuscular hemoglobin concentration measurement (mass/volume) Automated erythrocyte mean corpuscular hemoglobin concentration measurement (mass/volume) 32.3 31 - 35 08/05/2017 [facility] Automated erythrocyte mean corpuscular volume Automated erythrocyte mean corpuscular volume 99.0 81 - 99 08/05/2017 [facility] Blood erythrocytes automated count (number/volume) Blood erythrocytes automated count (number/volume) 3.94 4.3 - 5.7 08/05/2017 [facility] Blood leukocytes automated count (number/volume) Blood leukocytes automated count (number/volume) 4.03 4.8 - 10.8 08/05/2017 [facility] Blood lymphocytes count (number/volume) Blood lymphocytes count (number/volume) 1.2 1.0 - 3.2 08/05/2017 [facility] Blood monocytes automated count (number/volume) Blood monocytes automated count (number/volume) 0.2 0.2 - 0.8 08/05/2017 [facility] Estimated glomerular filtration rate (GFR) determination Estimated glomerular filtration rate (GFR) determination 51 60 08/05/2017 [facility] Glucose measurement Glucose measurement 163 74 - 118 08/05/2017 [facility] Serum or plasma anion gap Serum or plasma anion gap 15.9 8 - 16 08/05/2017 [facility] Serum or plasma calcium measurement (mass/volume) Serum or plasma calcium measurement (mass/volume) 9.9 8.4 - 10.2 08/05/2017 [facility] Serum or plasma carbon dioxide, total measurement (moles/volume) Serum or plasma carbon dioxide, total measurement (moles/volume) 29 22 - 29 08/05/2017 [facility] Serum or plasma chloride measurement (moles/volume) Serum or plasma chloride measurement (moles/volume) 106 98 - 107 08/05/2017 [facility] Serum or plasma creatinine measurement (mass/volume) Serum or plasma creatinine measurement (mass/volume) 1.35 0.72 - 1.25 08/05/2017 [facility] Serum or plasma potassium measurement (moles/volume) Serum or plasma potassium measurement (moles/volume) 3.9 3.5 - 5.1 08/05/2017 [facility] Serum or plasma sodium measurement (moles/volume) Serum or plasma sodium measurement (moles/volume) 147 136 - 145 08/05/2017 [facility] Serum or plasma urea nitrogen measurement (mass/volume) Serum or plasma urea nitrogen measurement (mass/volume) 36 7 - 26 08/05/2017 [facility] Serum or plasma urea nitrogen/creatinine mass ratio Serum or plasma urea nitrogen/creatinine mass ratio 27 6 - 25 08/05/2017 [facility] Red Cell Distribution Width 14.6 11.7 - 14.4 08/05/2017 [facility] IM GRANULOCYTES % 0.5 0.0 - 1.0 08/05/2017 [facility] Absolute Immature Granulocyte (auto 0.02 0 - 0.1 08/05/2017 [facility] Pathology Reports No Data Provided for This [...] DC Date Status Source Discharged Inpatient (obs) [id number] FIDENCIO GALLARDO MD 08/08/2017 08/09/2017 [facility] Procedures Procedure Code Date Perfomer Comments Source Total replacement of left knee joint 150486026 08/08/2017 SAMI [facility] Assessment and Plan No Data Provided for This Section Plan of Care Plan of Care Date Source Discharge Date 08/09/17 2:30pm Disposition HOME HEALTH SERVICE Instructions/Education Provided Post Operative Pain Prescriptions See Medication Section Referrals FIDENCIO GALLARDO MD (Orthopedic) Order Date: 08/18/2017 Entered Date: 08/09/2017 11:12am Address: [address] [place] [address] [place] [address] [id number] Additional Instructions/Education Diet tolerated <Ok to shower and wash wound gently starting, tomorrow, Change bandage daily, ASA 325mg BID x 3 weeks for thromboprophylaxis> Follow up with your PCP Call for Appt. with Dr. Gallardo or Tuesday for follow up. If any Increase of temperature or Pain return to ER 08/09/2017 [facility] Social History Social History Date Source Social [...] Start Date Stop Date Former smoker 08/09/2017 [facility] Family History No Data Provided for This Section Advance Directives Order Name Results Value Date Source Advance Directives Advance Directives Directive Response Recorded Date/Time Does the patient have an advance directive? No 08/08/17 5:45pm If yes, is advance directive on file with [facility]? No 08/08/17 5:45pm If not on file with [facility] will patient provide a copy? No 08/08/17 5:45pm Do you have a Directive to Physician? Yes 08/05/17 10:24am Do you have a Medical Power of Traffic Court Magistrate? Yes 08/05/17 10:24am Do you have an [...] rights and responsibilities? Yes 08/05/17 10:25am 08/09/2017 [facility] Functional Status No Data Provided for This Section
--- NOTE | 2018-11-14 15:59 | Diagnostic Imaging Report ---
EXAMINATION: MRI of the brain without contrast. HISTORY: Dizziness, hypertension COMPARISON: Head CT 11/14/2018 TECHNIQUE: Sagittal T2; axial DWI, T2, FLAIR, T1-IR, T2 gradient echo; coronal FLAIR. FINDINGS: Parenchyma: 1. A few scattered and mildly confluent periventricular white matter T2 FLAIR hyperintensities, most likely nonspecific chronic microvascular ischemic changes. 2. No mass, hemorrhage, acute or chronic infarcts. Skull/scalp: Unremarkable. Incidentally noted small left frontal subgaleal benign lipoma. Vessels: Prominent tortuosity and dilatation of the posterior circulation particularly at the vertebrobasilar junction, which may be related to atherosclerosis/hypertension, with vertebro basilar dolichoectasia, with associated approximately 1.2 cm heterogeneous signal intensity possibly thrombosed aneurysm on the posterior aspect of the vertebral basilar junction. Otherwise expected flow voids present in the major arteries and dural sinuses. Extra-axial spaces: No abnormal signal intensity or mass effect. Brain volume: Within normal limits for age. Ventricles: No hydrocephalus or displacement. Foramen magnum: Unremarkable. Sella: Unremarkable. Paranasal / mastoid sinuses: No significant inflammatory disease. IMPRESSION: 1. No acute infarcts or hemorrhage. 2. Mild chronic microvascular ischemic changes. 3. 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 Signed by: Dr. Arleen Guerra M.D. on 11/14/2018 3:56 PM
[2018-11-14 16:10] VITALS: BP 150/71
[2018-11-14 16:20] VITALS: BP 150/71
[2018-11-14 16:22] VITALS: BP 150/71
[2018-11-14] MEDS ORDERED: ASPIR 8181 MG PO (16:30)
[2018-11-14] MEDS ORDERED: SINEMET 25-1001 EACH PO (16:34)
[2018-11-14] MEDS ORDERED: MULTI-VITAMIN1 EACH PO (16:35)
[2018-11-14] MEDS ORDERED: CALCET TABLET1 EACH PO (16:37)
[2018-11-14 18:32] LABS: CREATINE KINASE MB 1.6 ng/mL (0-5.0)
[2018-11-14 20:00] VITALS: BP 131/59
[2018-11-14] MEDS ORDERED: FAMOTIDINE 20 MG/2 ML VIAL IV SCH (20:00)
[2018-11-14 20:44] VITALS: BP 131/59
[2018-11-14] MEDS ORDERED: SIMVASTATIN 40 MG TAB PO SCH (21:00)
--- NOTE | 2018-11-14 22:04 | NUR ---
Call received from Dr. Deleon ordered to change code status.
[2018-11-15] VITALS (8 sets, daily range): BP systolic 135–151; BP diastolic 63–73
[2018-11-15] MEDS: CEFTRIAXONE SOD 1 GM/NS 50 ML 50 ML IV SCH ×2 (00:29→12:02)
[2018-11-15 01:54] LABS: CREATINE KINASE MB 1.5 ng/mL (0-5.0)
[2018-11-15 05:56] LABS: BASOPHILS % 0.4 % (0.0-1.0); EOSINOPHILS # (AUTO) 0.2 (0.0-0.4); EOSINOPHILS % 3.5 % (0.0-6.0); HEMOGLOBIN 12.1 g/dL (14.0-18.0); LYMPHOCYTES # (AUTO) 1.4 (1.0-3.2); LYMPHOCYTES % 29.7 % (18.0-39.1); MEAN CORPUSCULAR HEMOGLOBIN 31.3 pg (28-32); MEAN CORPUSCULAR HGB CONC 31.8 g/dL (31-35); MEAN CORPUSCULAR VOLUME 98.4 fL (81-99); MONOCYTES # (AUTO) 0.5 (0.2-0.8); MONOCYTES % 10.2 % (4.4-11.3); NEUTROPHILS # (AUTO) 2.6 (2.1-6.9); NEUTROPHILS % 55.8 % (38.7-80.0); PLATELET COUNT 123 x10e3/uL (140-360); RED BLOOD COUNT 3.86 x10e6/uL (4.3-5.7); RED CELL DISTRIBUTION WIDTH 15.6 % (11.7-14.4)
[2018-11-15 06:12] LABS: ALBUMIN 3.5 g/dL (3.5-5.0); ALBUMIN/GLOBULIN RATIO 1.5 (0.8-2.0); ANION GAP 12.8 mmol/L (8-16); CHOL/HDL RATIO 3.5 (3.9-4.7); CREATININE, SERUM 1.35 mg/dL (0.72-1.25); POTASSIUM 3.8 mmol/L (3.5-5.1)
--- NOTE | 2018-11-15 06:50 | NUR ---
Merced CHAN notified that cardiac markers for 0955 am was run by the Lab at 05:30 am. Last 3 Cardiac markers was negative States that it's OK and no need to redraw blood.
--- NOTE | 2018-11-15 07:00 | NUR ---
RECEIVED AM REPORT FROM KAL FOWLER AND MORNING ROUNDS DONE. PT IS ALERT, NO S/S OF DISTRESS. PT IS [employer] [place]. CALL LIGHT WITHIN REACH, PT INSTRUCTED TO CALL NURSE FOR HELP. FAMILY IS AT THE BEDSIDE.
[2018-11-15] MEDS ORDERED: FAMOTIDINE 20 MG TAB PO SCH (07:30)
[2018-11-15] MEDS: CARBIDOPA/LEVODOPA 25/100 TAB PO SCH ×2 (08:31→12:02)
[2018-11-15] MEDS ORDERED: GABAPENTIN300 MG PO (08:36)
[2018-11-15] MEDS ORDERED: OYST-CAL-D 500MG TABLET PO SCH (09:00)
[2018-11-15] MEDS ORDERED: ASPIRIN 81 MG CHEW TAB PO SCH (09:00)
[2018-11-15] MEDS ORDERED: HYDROXYCHLOROQUINE SULFATE 200 MG TAB PO SCH (09:00)
[2018-11-15] MEDS ORDERED: FUROSEMIDE 40 MG TAB PO SCH (09:00)
[2018-11-15] MEDS ORDERED: ALLOPURINOL 100 MG TAB PO SCH (09:00)
[2018-11-15] MEDS ORDERED: ASPIRIN 81 MG ENTERIC COATED PO SCH (09:00)
[2018-11-15] MEDS ORDERED: MULTIVITAMINS/MINERALS TAB PO SCH (09:00)
[2018-11-15] MEDS ORDERED: ONDANSETRON HCL 4 MG ORAL DISINTEGRATING TAB PO PRN (11:15)
[2018-11-15] MEDS ORDERED: Meclizine Hcl PO (11:31)
[2018-11-15] MEDS ORDERED: HYDROCHLOROTHIAZIDE 25 MG TAB PO SCH (11:45)
[2018-11-15 12:06] LABS: EOSINOPHILS % (MANUAL) 2 % (0-7); LYMPHOCYTES % (MANUAL) 25 % (19-48); MONOCYTES % (MANUAL) 7 % (3.4-9.0); NEUTROPHILS % (MANUAL) 66 % (40-74); PLATELET MORPHOLOGY COMMENT NORMAL; RBC MORPHOLOGY COMMENT NORMAL
[2018-11-15 12:07] LABS: PLATELET ESTIMATE ADEQUATE
[2018-11-15] MEDS ORDERED: SIMVASTATIN 20 MG TAB PO SCH (21:00)
--- NOTE | 2018-11-15 23:42 | Discharge Summary ---
ADMISSION DIAGNOSES: Dizziness, hypertension, tremors, hyperlipidemia, gout, rheumatoid arthritis, peripheral neuropathy, acute kidney injury. DISCHARGE DIAGNOSES: Dizziness, hypertension, tremors, hyperlipidemia, gout, rheumatoid arthritis, peripheral neuropathy, acute kidney injury, rule out cerebrovascular accident, rule out transient ischemic attack. HISTORY: Hypertension, tremors, rheumatoid arthritis, hyperlipidemia, gout, peripheral neuropathy. SURGICAL HISTORY: Left total knee replacement. FAMILY HISTORY: Noncontributory. SOCIAL HISTORY: The patient admits to drinking 3 to 4 mixed drinks every night. HOSPITAL COURSE: A 78-year-old male complains of elevated systolic blood pressure intermittently over the last week. He also complains of intermittent dizziness with positional changes. He denies weakness, syncope, nausea, vomiting, and fever. He came to the ER when he started having associated sweating. Echo showed an EF of 55% or more. EKG showed sinus baron at 59. Carotid Doppler was negative. Chest x-ray negative. CT of the brain showed no acute abnormalities with mild white matter chronic microvascular ischemic changes. MRI of the brain showed no acute infarcts or hemorrhage. Mild chronic microvascular ischemic changes. Urine culture was negative. The patient will discharge home on the same blood pressure medicines and home medicines that he arrived taking. He will discharge with a p.r.n. prescription for meclizine. The patient and daughter understand discharge instructions and agrees to plan. The patient will follow up with Dr. Adams in 1 to 2 weeks. Dictated by Trina Nash NP MD YANIQUE Hernandez/MODL /[id number]
[2018-11-16] MEDS ORDERED: VALSARTAN 80 MG TAB PO SCH (09:00)
[2018-11-16] MEDS ORDERED: HYDROCHLOROTHIAZIDE 25 MG TAB PO SCH (09:00)
== END 2018-11-15 17:39 | disposition home or self-care (01) ==
LOC: ER 09:46 → ERHOLD 13:24 → MED/SURG3 15:43
PROVIDERS: ADMIT Internal Medicine; ATTEND Internal Medicine
DX: R42 Dizziness and giddiness (principal); R25.1 Tremor, unspecified; M10.9 Gout, unspecified; M06.9 Rheumatoid arthritis, unspecified; G62.9 Polyneuropathy, unspecified; N17.9 Acute kidney failure, unspecified; Z96.652 Presence of left artificial knee joint; F10.10 Alcohol abuse, uncomplicated; E78.5 Hyperlipidemia, unspecified
CPT/HCPCS: 36415; 70450; 70551; 71045; 80053 ×2; 80061; 81001; 82550 ×2; 82553 ×2; 82948 ×2; 83036; 83735; 84443; 84484 ×2; 85025 ×2; 85610; 85730; 87086; 93005; 93306; 93880; 97139; 97161; 99285; G0378 ×2; J0696 ×2; J7030; J8597

== ENCOUNTER → 2019-01-03 | Outpatient (CLI) | payer MEDICARE ==
[~2019-01-03] MED LIST changes: +CALCET TABLET1 EACH PO; +GABAPENTIN300 MG PO; +GADOBENATE DIMEGLUMINE 1 ML IV ONE; +MULTI-VITAMIN1 EACH PO; +Meclizine Hcl PO; +SINEMET 25-1001 EACH PO; +SODIUM CHLORIDE 0.9% 50ML 50 ML ONE
[2019-01-03 07:50] LABS: CREATININE, SERUM 1.24 mg/dL (0.72-1.25)
--- NOTE | 2019-01-03 13:35 | Diagnostic Imaging Report ---
Exam: Intracranial MRA without and with IV contrast History: Hypertension, nonruptured cerebral aneurysm. Comparison: Brain MRI and head CT of 11/14/2018. Technique: Precontrast axial 2-D [id number] and axial postcontrast MRA with coronal, sagittal and 3-D MIP reformats. Additional laminar 3-D images through the [place] [facility] [place] were created on a separate stand alone workstation by the radiologist. IV contrast: 20 cc MultiHance. Findings: Anterior circulation: Internal carotid arteries: Patent bilaterally with calcified atherosclerosis in the bilateral cavernous and paraophthalmic segments which do not result in stenosis. Reason identified. Middle cerebral arteries: Patent, no proximal branch occlusion or stenosis. No aneurysm identified. Anterior through arteries: Patent, no proximal branch occlusion or stenosis. No aneurysm identified. Posterior circulation: Included segments of the intradural vertebral arteries: Patent with calcified atherosclerosis without significant stenosis. The dominant left vertebral artery is tortuous and mildly ectatic. Basilar artery: Patent with 9 mm x 8 mm x 13 mm (SI x AP x TV) posteriorly projecting saccular aneurysm which abuts and chronically indents the right ventral surface of the igor is with 8 mm neck. Though there is calcified atherosclerosis near the vertebral basilar junction and near the aneurysm neck as seen on the prior neck CT, the aneurysm itself does not appear to be calcified. Posterior cerebral arteries: Patent, no proximal branch occlusion or stenosis. No aneurysm. Anatomical variants: Anterior commuting indicating artery: Patent. Posterior commuting indicating arteries: Patent on the right. Not visualized on the left. Vertebral arteries: Dominant left vertebral artery. IMPRESSION: 1. 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 2. Calcified atherosclerosis in the included segments of the vertebral arteries and in the carotid siphons without stenosis. 3. Tortuous dominant left vertebral artery. Signed by: Dr. Héctor Mathis M.D. on 01/03/2019 1:32 PM
== END ==
LOC: MRI 06:54
PROVIDERS: ATTEND Psychiatry & Neurology Neurology
DX: Q89.7 Multiple congenital malformations, not elsewhere classified (principal); I67.1 Cerebral aneurysm, nonruptured; I10 Essential (primary) hypertension
CPT/HCPCS: 36415; 70546; 82565; 84520; A9577

== ENCOUNTER 2020-01-16 11:18 | Outpatient (RCR) | payer MEDICARE ==
[~2020-01-16 11:18] MED LIST changes: -GADOBENATE DIMEGLUMINE 1 ML IV ONE; -SODIUM CHLORIDE 0.9% 50ML 50 ML ONE
== END 2020-01-19 ==
LOC: PT 11:18
PROVIDERS: ATTEND Specialist
DX: Z96.651 Presence of right artificial knee joint (principal); M62.81 Muscle weakness (generalized); M25.561 Pain in right knee; M25.661 Stiffness of right knee, not elsewhere classified

== ENCOUNTER → 2020-02-18 | Outpatient (RCR) | payer MEDICARE | LOC: PT 01-22 08:59 | PROVIDERS: ATTEND Specialist | DX: Z96.651 Presence of right artificial knee joint (principal); M25.561 Pain in right knee; M25.661 Stiffness of right knee, not elsewhere classified; M62.81 Muscle weakness (generalized) ==

== ENCOUNTER 2020-02-22 08:51 | Outpatient (RCR) | payer MEDICARE | END 2020-03-20 | LOC: PT 08:51 | PROVIDERS: ATTEND Specialist | DX: Z96.651 Presence of right artificial knee joint (principal); M62.81 Muscle weakness (generalized); M25.561 Pain in right knee; M25.661 Stiffness of right knee, not elsewhere classified | CPT/HCPCS: 97139 ==

== ENCOUNTER 2020-03-19 08:47 | Outpatient (RCR) | payer MEDICARE | END 2020-03-20 | LOC: PT 08:47 | PROVIDERS: ATTEND Anesthesiology | DX: Z96.651 Presence of right artificial knee joint (principal); M25.561 Pain in right knee; M25.661 Stiffness of right knee, not elsewhere classified; M62.81 Muscle weakness (generalized) ==

== ENCOUNTER 2020-04-14 09:00 | Outpatient (RCR) | payer MEDICARE | END 2020-04-20 | LOC: PT 09:00 | PROVIDERS: ATTEND Anesthesiology | DX: M54.5 Low back pain (principal); M47.816 Spondylosis without myelopathy or radiculopathy, lumbar region; M62.81 Muscle weakness (generalized); R26.2 Difficulty in walking, not elsewhere classified; M25.662 Stiffness of left knee, not elsewhere classified ==

== ENCOUNTER → 2020-06-18 | Outpatient (RCR) | payer MEDICARE | LOC: PT 11:01 | PROVIDERS: ATTEND Anesthesiology | DX: M47.816 Spondylosis without myelopathy or radiculopathy, lumbar region (principal); M54.16 Radiculopathy, lumbar region ==

== ENCOUNTER 2020-07-10 08:41 | Outpatient (RCR) | payer MEDICARE | END 2020-07-18 | LOC: PT 08:41 | PROVIDERS: ATTEND Anesthesiology | DX: M47.816 Spondylosis without myelopathy or radiculopathy, lumbar region (principal); M54.16 Radiculopathy, lumbar region ==

== ENCOUNTER → 2020-11-18 | Outpatient (RCR) | payer MEDICARE | LOC: PT 10-22 14:02 | PROVIDERS: ATTEND Anesthesiology | DX: M47.816 Spondylosis without myelopathy or radiculopathy, lumbar region (principal); M54.16 Radiculopathy, lumbar region ==

== ENCOUNTER 2020-11-27 08:00 | Outpatient (RCR) | payer MEDICARE | END 2020-12-18 | LOC: PT 08:00 | PROVIDERS: ATTEND Anesthesiology | DX: M47.816 Spondylosis without myelopathy or radiculopathy, lumbar region (principal); M54.16 Radiculopathy, lumbar region ==

== ENCOUNTER 2021-07-13 19:31 | Inpatient (IN) | payer MEDICARE ==
[~2021-07-13] VITALS: Ht 182.9 cm; Wt 122.5 kg
[2021-07-13 20:06] LABS: BASOPHILS % 0.2 % (0.0-1.0); EOSINOPHILS % 0.1 % (0.0-6.0); HEMATOCRIT 33.8 % (38.2-49.6); HEMOGLOBIN 10.7 g/dL (14.0-18.0); LYMPHOCYTES # (AUTO) 0.7 (1.0-3.2); LYMPHOCYTES % 7.3 % (18.0-39.1); MEAN CORPUSCULAR HEMOGLOBIN 30.2 pg (28-32); MEAN CORPUSCULAR HGB CONC 31.7 g/dL (31-35); MEAN CORPUSCULAR VOLUME 95.5 fL (81-99); MONOCYTES # (AUTO) 0.6 (0.2-0.8); NEUTROPHILS # (AUTO) 7.6 (2.1-6.9); PLATELET COUNT 187 x10e3/uL (140-360); RED BLOOD COUNT 3.54 x10e6/uL (4.3-5.7); RED CELL DISTRIBUTION WIDTH 17.1 % (11.7-14.4)
[2021-07-13 20:09] LABS: CLARITY,URINE SL CLOUDY (CLEAR); COLOR,URINE STRAW (YELLOW); KETONES,URINE NEGATIVE (NEGATIVE); LEUKOCYTE ESTERASE ,URINE NEGATIVE (NEGATIVE); NITRITE,URINE NEGATIVE (NEGATIVE); PROTEIN,URINE DIPSTICK 1+ (NEGATIVE); URINE UROBILINOGEN 0.2 mg/dL (0.2 - 1)
[2021-07-13 20:16] LABS: AMORPHOUS SEDIMENT,URINE FEW (FEW); BACTERIA,URINE MODERATE /HPF; HYALINE CASTS 0-1 (0-1)
[2021-07-13 20:23] LABS: ALBUMIN/GLOBULIN RATIO 0.9 (0.8-2.0); CALCIUM 8.1 mg/dL (8.4-10.2); CREATININE, SERUM 2.25 mg/dL (0.72-1.25)
[2021-07-13] MEDS ORDERED: ACETAMINOPHEN 325 MG TAB ONE (20:26)
[2021-07-13] MEDS ORDERED: SODIUM CHLORIDE 0.9% 1000ML 1,000 ML ONE (20:26)
[2021-07-13] MEDS ORDERED: SODIUM CHLORIDE 0.9% 1000ML 1,000 ML IV ONE (20:45)
[2021-07-13] MEDS ORDERED: ACETAMINOPHEN 325 MG TAB PO ONE (20:45)
[2021-07-13 20:53] LABS: CREATINE KINASE MB 13.2 ng/mL (0-5.0)
[2021-07-13] MEDS: SODIUM CHLORIDE 0.9% 1000ML 1,000 ML IV SCH (21:30)
[2021-07-13 22:56] VITALS: BP 96/50
[2021-07-13 22:57] VITALS: BP 96/50
[2021-07-13 23:10] VITALS: BP 96/50
[2021-07-14] VITALS (8 sets, daily range): BP systolic 82–111; BP diastolic 42–57
[2021-07-14 05:59] LABS: BASOPHILS % 0.5 % (0.0-1.0); EOSINOPHILS # (AUTO) 0.1 (0.0-0.4); EOSINOPHILS % 0.9 % (0.0-6.0); HEMATOCRIT 31.4 % (38.2-49.6); HEMOGLOBIN 9.8 g/dL (14.0-18.0); LYMPHOCYTES # (AUTO) 0.6 (1.0-3.2); LYMPHOCYTES % 9.1 % (18.0-39.1); MEAN CORPUSCULAR HEMOGLOBIN 29.8 pg (28-32); MEAN CORPUSCULAR HGB CONC 31.2 g/dL (31-35); MEAN CORPUSCULAR VOLUME 95.4 fL (81-99); MONOCYTES # (AUTO) 0.5 (0.2-0.8); MONOCYTES % 8.3 % (4.4-11.3); NEUTROPHILS # (AUTO) 5.1 (2.1-6.9); PLATELET COUNT 151 x10e3/uL (140-360); RED BLOOD COUNT 3.29 x10e6/uL (4.3-5.7)
[2021-07-14 06:26] LABS: ALBUMIN 2.4 g/dL (3.5-5.0); ALBUMIN/GLOBULIN RATIO 0.8 (0.8-2.0); ANION GAP 13.5 mmol/L (8-16); CALCIUM 7.6 mg/dL (8.4-10.2); CREATININE, SERUM 1.87 mg/dL (0.72-1.25); POTASSIUM 3.5 mmol/L (3.5-5.1)
[2021-07-14 06:47] LABS: CREATINE KINASE MB 17.2 ng/mL (0-5.0)
[2021-07-14] MEDS ORDERED: ACETAMINOPHEN 325 MG TAB PO PRN (07:00)
[2021-07-14] MEDS ORDERED: ONDANSETRON HCL INJ 2MG/ML 2ML 2 MG/ML VIAL IV PRN (07:00)
[2021-07-14 08:21] LABS: BAND NEUTROPHILS % (MANUAL) 2 %; EOSINOPHILS % (MANUAL) 1 % (0-7); LYMPHOCYTES % (MANUAL) 15 % (19-48); MONOCYTES % (MANUAL) 4 % (3.4-9.0); NEUTROPHILS % (MANUAL) 77 % (40-74)
[2021-07-14 08:22] LABS: ANISOCYTOSIS SLIGHT; PLATELET ESTIMATE ADEQUATE; PLATELET MORPHOLOGY COMMENT NORMAL; RBC MORPHOLOGY COMMENT NORMAL
[2021-07-14] MEDS: SODIUM CHLORIDE 0.9% 1000ML 1,000 ML IV SCH ×2 (09:17→15:58)
[2021-07-14 14:54] LABS: CREATINE KINASE MB 7.7 ng/mL (0-5.0)
[2021-07-14] MEDS: METRONIDAZOLE 500MG/NS 100ML 100 ML IV SCH (21:56)
[2021-07-15] VITALS (9 sets, daily range): BP systolic 88–103; BP diastolic 46–60
[2021-07-15] MEDS: SODIUM CHLORIDE 0.9% 1000ML 1,000 ML IV SCH ×3 (02:19→21:08)
[2021-07-15] MEDS: METRONIDAZOLE 500MG/NS 100ML 100 ML IV SCH ×3 (05:16→22:07)
[2021-07-15] MEDS ORDERED: ONDANSETRON HCL 4 MG ORAL DISINTEGRATING TAB PO PRN (07:45)
[2021-07-15 08:11] LABS: BASOPHILS % 0.4 % (0.0-1.0); EOSINOPHILS # (AUTO) 0.3 (0.0-0.4); EOSINOPHILS % 4.8 % (0.0-6.0); HEMATOCRIT 32.3 % (38.2-49.6); HEMOGLOBIN 10.1 g/dL (14.0-18.0); LYMPHOCYTES # (AUTO) 0.9 (1.0-3.2); LYMPHOCYTES % 13.4 % (18.0-39.1); MEAN CORPUSCULAR HEMOGLOBIN 30.1 pg (28-32); MEAN CORPUSCULAR HGB CONC 31.3 g/dL (31-35); MEAN CORPUSCULAR VOLUME 96.1 fL (81-99); MONOCYTES # (AUTO) 0.3 (0.2-0.8); MONOCYTES % 4.8 % (4.4-11.3); NEUTROPHILS # (AUTO) 5.4 (2.1-6.9); NEUTROPHILS % 76.2 % (38.7-80.0); PLATELET COUNT 150 x10e3/uL (140-360); RED BLOOD COUNT 3.36 x10e6/uL (4.3-5.7)
[2021-07-15] MEDS ORDERED: TAMSULOSIN HCL 0.4 MG CAP PO ONE (08:30)
[2021-07-15 08:32] LABS: ALBUMIN 2.1 g/dL (3.5-5.0); ALBUMIN/GLOBULIN RATIO 0.7 (0.8-2.0); ANION GAP 11.2 mmol/L (8-16); CALCIUM 7.6 mg/dL (8.4-10.2); CREATININE, SERUM 1.35 mg/dL (0.72-1.25); POTASSIUM 3.2 mmol/L (3.5-5.1)
[2021-07-15] MEDS ORDERED: POTASSIUM CHLORIDE 20 MEQ TAB CR PO ONE (11:30)
[2021-07-15] MEDS ORDERED: GABAPENTIN 100 MG CAP PO SCH (13:00)
[2021-07-15] MEDS ORDERED: NEURONTIN300 MG PO (13:35)
[2021-07-15] MEDS: GABAPENTIN 300 MG CAP PO SCH ×2 (16:55→21:08)
[2021-07-16 00:02] VITALS: BP 94/57
[2021-07-16 04:00] VITALS: BP 120/60
[2021-07-16] MEDS: SODIUM CHLORIDE 0.9% 1000ML 1,000 ML IV SCH ×2 (05:55→12:25)
[2021-07-16] MEDS: METRONIDAZOLE 500MG/NS 100ML 100 ML IV SCH ×2 (05:55→12:25)
[2021-07-16 08:06] LABS: ANION GAP 10.2 mmol/L (8-16); CALCIUM 7.5 mg/dL (8.4-10.2); CREATININE, SERUM 0.85 mg/dL (0.72-1.25); POTASSIUM 3.2 mmol/L (3.5-5.1)
[2021-07-16 08:27] VITALS: BP 125/70
[2021-07-16 08:45] VITALS: BP 125/70
[2021-07-16] MEDS: GABAPENTIN 300 MG CAP PO SCH ×2 (10:00→12:25)
[2021-07-16 13:31] VITALS: BP 125/67
[2021-07-16] MEDS ORDERED: FLOMAX0.4 MG PO (14:04)
[2021-07-16] MEDS ORDERED: PROMETHAZINE 12.5MG/ NACL 0.9% 12.5 MG/50 ML BAG IV ONE (16:00)
[2021-07-16 16:04] VITALS: BP 137/70
[2021-07-16] MEDS ORDERED: TAMSULOSIN HCL 0.4 MG CAP PO SCH (21:00)
[2021-07-16] MEDS ORDERED: METRONIDAZOLE 500 MG TAB PO SCH (22:00)
[2021-07-17] MEDS ORDERED: POTASSIUM CHLORIDE 20 MEQ TAB CR PO SCH (09:00)
== END 2021-07-16 17:30 | DRG 872 ==
LOC: ER 19:37 → ERHOLD 21:40 → MED/SURG2 22:40
PROVIDERS: ADMIT Internal Medicine; ATTEND Internal Medicine
DX: A41.89 Other specified sepsis (principal); N17.9 Acute kidney failure, unspecified; M62.82 Rhabdomyolysis; N39.0 Urinary tract infection, site not specified; K51.00 Ulcerative (chronic) pancolitis without complications; A04.72 Enterocolitis due to Clostridium difficile, not specified as recurrent; K80.20 Calculus of gallbladder without cholecystitis without obstruction; D35.01 Benign neoplasm of right adrenal gland; N28.89 Other specified disorders of kidney and ureter; I12.9 Hypertensive chronic kidney disease with stage 1 through stage 4 chronic kidney disease, or unspecified chronic kidney disease; N18.30 Chronic kidney disease, stage 3 unspecified; M06.9 Rheumatoid arthritis, unspecified; Z86.79 Personal history of other diseases of the circulatory system; G62.9 Polyneuropathy, unspecified; Z96.652 Presence of left artificial knee joint; N20.0 Calculus of kidney; E66.9 Obesity, unspecified; Z68.36 Body mass index [BMI] 36.0-36.9, adult; R33.9 Retention of urine, unspecified; R31.9 Hematuria, unspecified; E87.6 Hypokalemia; N28.1 Cyst of kidney, acquired
CPT/HCPCS: 36415; 70450; 71045; 74176; 74181; 80048; 80053; 81001; 82550; 82553; 83605; 83690; 84484; 85025; 87040; 87493; 93005; 93306; 97139; 99251; 99284; J0696; J2543; J2550; J7030; Q0162; U0002